=== PATIENT | female | born 1940 | race Caucasian/White ===

== ENCOUNTER 2016-11-21 08:10 | Day surgery (SDC) | payer MEDICARE, OTHER ==
[~2016-11-21] VITALS: Ht 172.7 cm; Wt 86.1 kg
[2016-11-21] MEDS: Lactated Ringer's 1,000 ML IV SCH ×2 (05:50→10:18)
[~2016-11-21 08:10] MED LIST: ACYC400T2 PO; ASCO100089 PO; CALC-140 PO; CHLO4TAB PO; CHOL100045 PO; CeFAZolin Inj 2 GM in Dextrose 5% 50 ML IV ONE; ESTRADIOL PO; ESTRING VG; FLAX100032 PO; IPRA15SP NS; L AC460C PO; LEVO75TA4 PO; LORA10CA PO; LOSA100T29 PO; MELA1TAB9 PO; METO-272 PO; MULT-285 PO; NPR500T PO; PROGEST PO; PROP10TA8 PO; RALO60TA PO; TRAZ-115 PO; VENL75CA PO
[2016-11-21] MEDS ORDERED: Propofol 10,000 mCg/mL 20 mL Inj ONE (08:11)
[2016-11-21] MEDS ORDERED: fentaNYL-PF 50 mCg/mL 2 mL Inj ONE (08:11)
[2016-11-21] MEDS ORDERED: CeFAZolin Inj 2 gm / 50mL D5W IV ONE (08:13)
[2016-11-21 08:47] VITALS: BP 134/71; PULSE 72; RESP 16; O2SAT 98
[2016-11-21] MEDS ORDERED: Lactated Ringer's 1,000 ML IV SCH (08:48)
[2016-11-21] MEDS ORDERED: Lactated Ringer's 500 ML IV PRN (08:48)
[2016-11-21] MEDS ORDERED: fentaNYL-PF 50 mCg/mL 2 mL Inj IVPUSH PRN (08:50)
[2016-11-21] MEDS ORDERED: hydrALAZINE 20 mg/mL Inj IVPUSH PRN (08:50)
[2016-11-21] MEDS ORDERED: MetoCLOpramide 5 mg/mL 2 mL Inj IVPUSH PRN (08:50)
[2016-11-21] MEDS ORDERED: EPHEDrine Sulfate 50 mg/mL Inj IVPUSH PRN (08:50)
[2016-11-21] MEDS ORDERED: Ondansetron 2 mg/mL 2 mL Inj IVPUSH PRN (08:50)
[2016-11-21] MEDS ORDERED: Phenylephrine 10,000 mCg/mL Inj IVPUSH PRN (08:50)
[2016-11-21] MEDS ORDERED: Atropine 0.4 mg/mL Inj IVPUSH PRN (08:50)
[2016-11-21] MEDS ORDERED: Labetalol 5 mg/mL 4 mL Inj IV PRN (08:50)
[2016-11-21] MEDS ORDERED: HYDROmorphone 1 mg/mL Inj IVPUSH PRN (08:50)
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
[2016-11-21] MEDS ORDERED: Vancomycin 1,000 mg Inj IRRIGATION ONE (10:33)
[2016-11-21] MEDS ORDERED: Bupivacaine-MPF 0.5% W/EPI 30 mL Inj INJ ONE (10:33)
[2016-11-21] MEDS ORDERED: Gentamicin 40 mg/mL 2 mL Inj IRRIGATION ONE (10:33)
[2016-11-21] MEDS ORDERED: HYDROcodone-APAP 5-325 mg Tablet PO PRN (11:35)
[2016-11-21] MEDS ORDERED: Ondansetron 8 mg ODT Tablet PO PRN (11:35)
[2016-11-21 11:40] VITALS: BP 147/74; PULSE 77; RESP 16; O2SAT 97
--- NOTE | 2016-11-21 11:56 | PCM.ANEP1 ---
Post Anesthesia Phase 1 PACU Phase 1 Assessment Vital Signs Vital Signs Date Time Temp Pulse Resp B/P Pulse Ox O2 Delivery O2 Flow Rate FiO2 11/21/16 11:40 36.3 77 16 147/74 97 Room Air 11/21/16 08:47 36.2 72 16 134/71 98 Room Air Anesthetic Administered: MAC Level of Alertness: Awake, talking KELSEY's with Equal Strength: Yes Pain: No Nausea or Vomiting: No Oxygen Delivery: Room Air Lungs: Clear to Auscultation, Normal Air Movement Alvarez Dobbins MD Nov 21, 2016 11:56
--- NOTE | 2016-11-21 11:57 | PCM.ANEP2 ---
Post Anesthesia Evaluation ASA/CMS Post Anesthesia VS in Patient's Normal Range?: Yes Resp Stable; Airway Patent?: Yes CV Function & Hydration Stable: Yes Mental Status Recovered?: Yes Pain control Satisfactory?: Yes N/V Control Satisfactory?: Yes Additional Comments Phase II directly from OR Alvarez Dobbins MD Nov 21, 2016 11:57
[2016-11-21 12:35] VITALS: BP 141/69; PULSE 72; RESP 16; O2SAT 97
--- NOTE | 2016-11-21 14:33 | OP ---
[address] [address] OPERATIVE REPORT PATIENT: ADRIANO ANGELES : 1940 MR#: [id number] ADMIT: 11/21/2016 JOB ID: [id number] DATE OF SURGERY: 11/21/2016 PROCEDURE: Stage 1 InterStim implant to include transforaminal placement of sacral neuro electrode as well as fluoroscopy imaging and guidance. SURGEON: Janeen Kuhn MD. ANESTHESIA: Local with monitored anesthesia care and IV sedation. PREOPERATIVE DIAGNOSIS(ES): Fecal incontinence, intractable urinary urgency, frequency, urge incontinence. POSTOPERATIVE DIAGNOSIS(ES): Fecal incontinence, intractable urinary urgency, frequency, urge incontinence. INDICATIONS: The patient is a 76-year-old woman with longstanding history of fecal and urge incontinence wishing trial of sacral nerve modulation to help with both of her symptoms. Her urge incontinence has been poorly managed for years with multiple medications as well. PROCEDURE IN DETAIL: After appropriate informed consent was obtained, the patient was brought to the operating room. She received IV antibiotics prior to onset of the procedure. She was made comfortable in the prone position. All pressure points carefully padded. Cleaned, prepped, and draped in the usual sterile fashion. A fluoroscope was brought in. Bony landmarks and fluoroscopy were used to identify the location of the right and left sacral foramen. We were able to traverse the needle through both. Ultimately the best responses were from the right-sided S3 foramen with good responses of toe and dee at low thresholds. We converted this in Seldinger fashion over to a quadripolar neuro electrode. We had good responses again at low thresholds on all four electrodes with a subtle dee and a good toe. Once we had good responses, the access sheath was removed allowing the lead to fix in place with the tines. We then created a pocket overlying the right ischium. This was created sharply, bluntly and with electrocautery. Hemostasis was achieved with electrocautery. We tunneled the distal end of the lead to this pocket. I made a connection to the extension wire, the disposable, using a boot to protect this. This was then extension wire tunneled out to the left a maximal distance possible away from the pocket and the permanent lead. Wounds were irrigated out copiously with antibiotic solution of vancomycin and gentamicin. We closed in layers with 2-0 Vicryl, 4-0 Monocryl, Mastisol and Steri-Strips. Sterile dressing was applied. The patient tolerated the procedure very well. Was returned to the one-day surgery area prior to discharge to home.
== END 2016-11-21 23:59 | disposition home or self-care (01) ==
LOC: SAS 08:10
PROVIDERS: ATTEND Urology
DX: N39.41 Urge incontinence (principal); R15.9 Full incontinence of feces; I10 Essential (primary) hypertension; G47.33 Obstructive sleep apnea (adult) (pediatric); F32.9 Major depressive disorder, single episode, unspecified; K21.9 Gastro-esophageal reflux disease without esophagitis; F41.9 Anxiety disorder, unspecified
CPT/HCPCS: 64581; 76000; C1778; J0690; J1580; J2250; J3010; J3370; J7120

== ENCOUNTER → 2016-12-05 | Day surgery (SDC) | payer MEDICARE, OTHER ==
[~2016-12-05] VITALS: Ht 172.7 cm; Wt 86.1 kg
[~2016-12-05] MED LIST changes: +Atropine 0.4 mg/mL Inj IVPUSH PRN; +Bupivacaine-MPF 0.5% W/EPI 30 mL Inj INFILTRATE ONE; -CeFAZolin Inj 2 GM in Dextrose 5% 50 ML IV ONE; +CeFAZolin Inj 2 GM in IV Premix 1 EACH IV ONE; +CeFAZolin Inj 2 gm / 50mL D5W IV ONE; +EPHEDrine Sulfate 50 mg/mL Inj IVPUSH PRN; +Gentamicin 40 mg/mL 2 mL Inj IRRIGATION ONE; +HYDROcodone-APAP 5-325 mg Tablet PO PRN; +HYDROmorphone 1 mg/mL Inj IVPUSH PRN; +Labetalol 5 mg/mL 4 mL Inj IV PRN; +Lactated Ringer's 1,000 ML IV SCH; +Lactated Ringer's 500 ML IV PRN; +MetoCLOpramide 5 mg/mL 2 mL Inj IVPUSH PRN; +Ondansetron 2 mg/mL 2 mL Inj IVPUSH PRN; +Ondansetron 8 mg ODT Tablet PO PRN; +Phenylephrine 10,000 mCg/mL Inj IVPUSH PRN; +Propofol 10,000 mCg/mL 20 mL Inj ONE; +Vancomycin 1,000 mg Inj IRRIGATION ONE; +fentaNYL-PF 50 mCg/mL 2 mL Inj IVPUSH PRN; +fentaNYL-PF 50 mCg/mL 2 mL Inj ONE; +hydrALAZINE 20 mg/mL Inj IVPUSH PRN
[2016-12-05] MEDS: Lactated Ringer's 1,000 ML IV SCH ×2 (06:06→09:17)
[2016-12-05 08:10] VITALS: BP 129/63; PULSE 71; RESP 16; O2SAT 99
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
[2016-12-05 10:06] VITALS: BP 121/68; PULSE 77; RESP 16; O2SAT 97
--- NOTE | 2016-12-05 10:40 | PCM.ANEP1 ---
Post Anesthesia Phase 1 PACU Phase 1 Assessment Vital Signs Vital Signs Date Time Temp Pulse Resp B/P Pulse Ox O2 Delivery O2 Flow Rate FiO2 12/05/16 10:06 36.5 77 16 121/68 97 Room Air 12/05/16 08:11 CPAP/BIPAP 12/05/16 08:10 36.3 71 16 129/63 99 Room Air Anesthetic Administered: MAC Level of Alertness: Awake, talking KELSEY's with Equal Strength: Yes Pain: No Nausea or Vomiting: No Oxygen Delivery: Room Air Lungs: Clear to Auscultation, Normal Air Movement Alvarez Dobbins MD Dec 05, 2016 10:40
--- NOTE | 2016-12-05 10:41 | PCM.ANEP2 ---
Post Anesthesia Evaluation ASA/CMS Post Anesthesia VS in Patient's Normal Range?: Yes Resp Stable; Airway Patent?: Yes CV Function & Hydration Stable: Yes Mental Status Recovered?: Yes Pain control Satisfactory?: Yes N/V Control Satisfactory?: Yes Additional Comments Phase II directly from OR Alvarez Dobbins MD Dec 05, 2016 10:41
[2016-12-05 11:03] VITALS: BP 123/54; PULSE 67; RESP 16; O2SAT 100
--- NOTE | 2016-12-06 10:02 | OP ---
[address] [address] OPERATIVE REPORT PATIENT: ADRIANO ANGELES : 1940 MR#: [id number] ADMIT: 12/05/2016 JOB ID: [id number] DATE OF SURGERY: 12/05/2016 PROCEDURE NAME: Stage 2 InterStim implant to include 1 IPG implantation and 2 complex initial set up and programming of device. SURGEON: Janeen Kuhn MD ANESTHESIA: Local with monitored anesthesia care, IV sedation. PREOPERATIVE DIAGNOSIS(ES): Fecal incontinence, urge urinary incontinence and frequency. POSTOPERATIVE DIAGNOSIS(ES): Fecal incontinence, urge urinary incontinence and frequency. INDICATIONS: The patient is a 76-year-old woman with a history of progressive urge incontinence, developing over the last years, also fecal incontinence quite bothersome happening often daily. Electing sacral neuromodulation trial to assess for benefit. She underwent implantation of the lead for her test on November 21, 2016 and had very good results ultimately with a near-complete resolution of her fecal incontinence and at least 80% improvement of her urge urinary incontinence, having gone from soaking multiple Depends a day to 1-2 Center pads. She wished to proceed with implantation. PROCEDURE IN DETAIL: After appropriate informed consent was obtained, the patient was brought to the operating room. She received IV antibiotics prior to the onset of the procedure. She was placed comfortably in the prone position. All pressure points carefully padded. Cleaned, prepped, and draped in the usual sterile fashion. Half-half mixture of lidocaine-Marcaine was used to infiltrate the area overlying her right-sided buttock pocket. This was then opened up sharply and bluntly with electrocautery. We also enlarged the pocket to accept the size of the Medtronic 2 IPG. Electrocautery was used for hemostasis. The extension wire and cover were removed leaving only the distal end of the sacral neural electrode. The pocket itself then was irrigated out with antibiotic solution, vancomycin and gentamicin. We then dried the lead end and attached the Medtronic 2 IPG. Gentle tug revealed a good connection. This fit nicely into the pocket. We irrigated further with the antibiotic solution and then again between each layer of closure. It was closed with a layer of 2-0 Vicryl, a layer of 4-0 Monocryl and a layer of Dermabond. She was then taken comfortably back to the one-day surgery area where the device itself was turned on, found to be operating within normal parameters, set up initially with a rate of 14, pulse width of 210. Program one was set up as 0 negative and 3 positive. Program two was 1 negative, 3 positive. Program three was 2 negative and 0 positive. Program four was 3 negative and 0 positive. The patient tolerated the procedure very well. SORIN
== END | disposition home or self-care (01) ==
LOC: SAS 07:35
PROVIDERS: ATTEND Urology
DX: N39.41 Urge incontinence (principal); R15.9 Full incontinence of feces; R35.0 Frequency of micturition; R35.1 Nocturia; N32.81 Overactive bladder; I10 Essential (primary) hypertension; F32.9 Major depressive disorder, single episode, unspecified; G47.00 Insomnia, unspecified; G47.33 Obstructive sleep apnea (adult) (pediatric); G25.81 Restless legs syndrome; K11.7 Disturbances of salivary secretion; I73.9 Peripheral vascular disease, unspecified
CPT/HCPCS: 64590; 95972; C1767; J0690; J1580; J2250; J3010; J3370; J7120

== ENCOUNTER 2017-05-24 18:06 | Emergency (ER) | payer MEDICARE, OTHER ==
[~2017-05-24] VITALS: Ht 170.2 cm; Wt 86.4 kg
[~2017-05-24 18:06] MED LIST changes: -Atropine 0.4 mg/mL Inj IVPUSH PRN; -Bupivacaine-MPF 0.5% W/EPI 30 mL Inj INFILTRATE ONE; -CeFAZolin Inj 2 GM in IV Premix 1 EACH IV ONE; -CeFAZolin Inj 2 gm / 50mL D5W IV ONE; -EPHEDrine Sulfate 50 mg/mL Inj IVPUSH PRN; -Gentamicin 40 mg/mL 2 mL Inj IRRIGATION ONE; -HYDROcodone-APAP 5-325 mg Tablet PO PRN; -HYDROmorphone 1 mg/mL Inj IVPUSH PRN; -Labetalol 5 mg/mL 4 mL Inj IV PRN; -Lactated Ringer's 1,000 ML IV SCH; -Lactated Ringer's 500 ML IV PRN; -MetoCLOpramide 5 mg/mL 2 mL Inj IVPUSH PRN; -Ondansetron 2 mg/mL 2 mL Inj IVPUSH PRN; -Ondansetron 8 mg ODT Tablet PO PRN; -Phenylephrine 10,000 mCg/mL Inj IVPUSH PRN; -Propofol 10,000 mCg/mL 20 mL Inj ONE; -Vancomycin 1,000 mg Inj IRRIGATION ONE; -fentaNYL-PF 50 mCg/mL 2 mL Inj IVPUSH PRN; -fentaNYL-PF 50 mCg/mL 2 mL Inj ONE; -hydrALAZINE 20 mg/mL Inj IVPUSH PRN
[2017-05-24 18:29] VITALS: BP 162/86; PULSE 68; RESP 16; O2SAT 96
--- NOTE | 2017-05-24 20:15 | ED.REPORT ---
HPI-General Illness Date of Service May 24, 2017 ED Provider: Dr. Guy Pt is 76 year old female who presents to the ED with concerns for worsening stool incontinence for the past year. She reports that she has been having both urinary and fecal incontinence for years. Pt states that she had a surgical implantation to alleviate her urinary incontinence, but this has worsened her fecal incontinence. She reports no communication regarding this issue with her PCP or GI doctor. Pt states that to control these symptoms, she has been taking anti-diarrheals. She denies any back pain, lower extremity numbness or tingling , or any other symptoms. Nursing Notes Stated Complaint: STOOL INCONTINENCE Chief Complaint: General Complaint Nursing Notes Reviewed: Yes Allergies: Coded Allergies: zolpidem (Verified Allergy, Severe, WILD DREAMS, 02/09/15) biotin (Verified Allergy, Intermediate, ITCHING, 02/09/15) calcium (Verified Allergy, Intermediate, ITCHING, 02/09/15) oxycodone HCl (Verified Adverse Reaction, Severe, N & V, 02/09/15) Uncoded Allergies: SEASONAL ALLERGIES (Allergy, Severe, Allergic Rhinitis, 05/16/10) Scheduled ([progest/estradiol]) 200 PO BID Acyclovir (Acyclovir) 400 Mg Tablet 400 MG PO BID Ascorbic Acid (Vitamin C) 1,000 Mg Tab.chew 500 MG PO DAILY Calcium Carbonate/Vitamin D3 (Calcium + Vitamin D Tablet) 1 Each Tablet 1 EACH PO DAILY Cholecalciferol (Vitamin D3) (Vitamin D) 1,000 Unit Capsule 1 TAB PO DAILY Flaxseed Oil (Flaxseed) 1,000 Mg Capsule 1,000 MG PO DAILY Ipratropium [place] (Ipratropium [place] 0.06% Nasal) 15 Ml [place] 1 SPRAY NS TID Levothyroxine (Levothyroxine) 75 Mcg Tablet 75 MCG PO DAILY Loratadine (Claritin) 10 Mg Capsule 10 MG PO DAILY Losartan Potassium (Losartan Potassium) 100 Mg Tablet 100 MG PO DAILY Melatonin (Melatonin) 1 Mg Tablet 1 TAB PO DAILY Metoprolol Succinate ER (Metoprolol Succinate ER) 50 Mg Tab.er.24h 50 MG PO DAILY Multivitamin (Multi-Day Vitamins) 1 Each Tablet 1 EACH PO DAILY Propranolol HCl (Propranolol HCl) 10 Mg Tablet 10 MG PO TID Raloxifene (Evista) 60 Mg Tablet 60 MG PO DAILY Trazodone (Trazodone) 50 Mg Tablet 50 MG PO HS Venlafaxine ER (Effexor XR) 75 Mg Cap.er.24h 75 MG PO DAILY l Acidophil/B Lactis/B Longum (Florajen3 Capsule) 460 Mg Capsule 460 MG PO DAILY Scheduled PRN Chlorpheniramine Maleate (Chlor-Trimeton) 4 Mg Tablet 4 MG PO PRN PRN PRN ALLERGIES Naproxen (Naproxen) 500 Mg Tab 500 MG PO BID PRN PRN For Pain Miscellaneous Medications ([estring]) 2 MG VG once every three months General Time Seen by MD: 20:15 Chief Complaint Other (Fecal incontinence) Hx Obtained From: Patient Arrived By: Walk-in Sudden in Onset?: No Onset Occurred: More than a week ago... Severity: Current: No pain currently Severity: Maximum: No pain Similar Sx Previous: Yes Past Medical History Past Medical History Chronic urinary and fecal incontinence Herniated discs Smoking History Never Smoker Ambulatory Status Independent Review of Systems Full Review of Systems Constitutional: Denies: Chills, Fever, Malaise, Weakness - generalized GI: Denies: Abdominal pain, Diarrhea, Nausea, Vomiting Female: Reports: Incontinence Musculoskeletal: Denies: Back pain Skin: Denies Diaphoresis Neurologic: Reports: Bowel dysfunction, Denies: Change LOC, Dizziness, Headache, Syncope, Weakness Complete sys rev & neg: except as marked. Physical Exam Vital Signs Vital Signs Date Time Temp Pulse Resp B/P Pulse Ox O2 Delivery O2 Flow Rate FiO2 05/24/17 21:36 36.4 65 16 172/81 97 Room Air 05/24/17 18:29 36.4 68 16 162/86 96 Room Air Initial VS: Reviewed General/Constitutional: Well-developed, Well-nourished Head / Eyes: Atraumatic, Normocephalic, PERRL ENT: Mucous membranes moist, Conjunctiva normal, No scleral icterus Neck: Supple, Non-tender, Full range of motion Respiratory: Breath sounds normal, Clear to auscultation, No respiratory distress Cardiovascular: Regular rate & rhythm, Heart sounds normal, Intact distal pulses Abdomen / GI: Soft, Non-tender, No guarding, No rebound, No distention Skin: Warm, Dry, No cyanosis Neurologic: Alert, Oriented, Nonfocal Re-Eval/Medical Decision Med Decision/Clinical Course 76 -year-old female presenting with 1 year of fecal incontinence. She has a trip planned to [place] in 12 days therefore came in to see if there is anything she can do in the meantime. She has no weakness numbness tingling. She has chronic incontinence for which she sees urology. She has never seen a GI doctor. No focal neuro deficits. I believe she needs to see GI for colonoscopy and she may need back imaging though given this is a chronic issue I do not believe this dazed down emergently tonight. She was given GIs number and advised to follow up with primary doctor on Saturday. Return precautions given if pain weakness numbness tingling or any other new or worsening symptoms. Source of Hx: Old records Time of Eval: 21:42 Re-Evaluation/Progress Note: Pt is rechecked and informed of her diagnosis and the plan to discharge her at this time. She understands and agrees, all questions are addressed. Counseled Regarding: Diagnosis, Need for follow-up, When/why to return to ED Discharge & Departure Primary Impression: Fecal incontinence Fecal incontinence type: unspecified Qualified Code: R15.9 - Full incontinence of feces Disposition: Home Discharge Condition All VS Reviewed: Yes Condition: Stable Additional Instructions: Continue using the anti-diarrheals to control your fecal incontinence. It is essential that you follow-up with GI in order to address this issue. Return to the emergency room with any worsening fecal incontinence or any other concerning symptoms. Referrals: Alba Herring (PCP) Bo Maria MD Attestation Portions of this note were transcribed by Rosa Elena Doss. I, Dr. Guy personally performed the history, physical exam and medical decision-making; I reviewed and confirmed the accuracy of the information in the transcribed note. Signed by:Keith Faith, 05/24/2017 21:00 copies to: Bo Maria MD; Alba Herring Ben M MD May 24, 2017 20:15 BERNADETTE DOSS May 24, 2017 20:46
[2017-05-24 21:36] VITALS: BP 172/81; PULSE 65; RESP 16; O2SAT 97
== END 2017-05-24 21:14 | disposition home or self-care (01) ==
LOC: SED 18:06
DX: R15.9 Full incontinence of feces (principal); R32 Unspecified urinary incontinence; M51.9 Unspecified thoracic, thoracolumbar and lumbosacral intervertebral disc disorder; Z88.4 Allergy status to anesthetic agent; Z88.5 Allergy status to narcotic agent; Z88.8 Allergy status to other drugs, medicaments and biological substances